=== PATIENT | female | born 2000 | race Caucasian/White ===

== ENCOUNTER 2019-12-16 14:53 | Outpatient (CLI) | payer OTHER ==
--- NOTE | 2019-12-16 15:10 | RAD ---
EXAM: 3 views of the right ankle HISTORY: Ankle pain after falling off a skateboard COMPARISON: None FINDINGS: 3 views of the right ankle shows an oblique fracture of the distal fibula. There is widenin g of the medial clear space of the ankle with a small avulsion fracture fragment adjacent to the medial malleolus. Moderate diffuse tissue swelling is seen. No degenerative changes are present. IMPRESSION: Distal fibular fracture with subluxation of the tibiotalar joint
== END 2019-12-16 14:54 | disposition home or self-care (01) ==
LOC: BICRAD 14:53
PROVIDERS: ATTEND Family Medicine
DX: S93.411A Sprain of calcaneofibular ligament of right ankle, initial encounter (principal); S82.831A Other fracture of upper and lower end of right fibula, initial encounter for closed fracture; S93.01XA Subluxation of right ankle joint, initial encounter

== ENCOUNTER 2019-12-16 16:03 | Inpatient (IN) | payer OTHER ==
[2019-12-16] MEDS ORDERED: Fentanyl 100 MCG/2 ML VIAL ONE (17:16)
[2019-12-16] MEDS ORDERED: Midazolam HCl 2 mg/2 ml Vial ONE (17:16)
[2019-12-16] MEDS ORDERED: Acetaminophen/Codeine 30-300mg Tablet PO PRN ×2 (17:27)
[2019-12-16] MEDS ORDERED: Ondansetron PF 4 MG/2 ML Vial IV PRN (17:27)
[2019-12-16] MEDS ORDERED: Morphine 2 MG/ML SYRINGE SLOW IVP PRN (17:27)
[2019-12-16] MEDS ORDERED: CEFAZOLIN 2 GM in Premix Bag 1 BAG IVPB SCH (17:30)
[2019-12-16] MEDS ORDERED: Communication Order-Pharmacy FS SCH (17:30)
--- NOTE | 2019-12-16 18:21 | RAD ---
RIGHT ANKLE TWO VIEWS: 12/16/19 INDICATION: History of post reduction films. COMPARISON: Prior exam dated 12/16/19 at 3:04 p.m. IMPRESSION: There has been interval reduction of the posterolateral subluxation of the talar dome in relationship to the tibial plafond. There is also slightly improved alignment involving the displaced lateral mal leolar fracture. The small avulsion fracture likely coming from the inner aspect of the medial malleo tato is partially visualized. Very small posterior malleolar fracture is also intervally reduced. IMPRESSION: Post reduction of the ankle fracture subluxation involving the right lower extremity. POS: BH
--- NOTE | 2019-12-16 18:40 | HP ---
DATE OF SURGERY: 12/15. PRINCIPAL DIAGNOSIS: Right lateral malleolus fracture with lateral shift of the talus. BRIEF HISTORY OF PRESENT ILLNESS: Silvana is a pleasant 19-year-old lady, who was accompanied by her mother to the emergency room at [facility]. Earlier this afternoon, I received a phone call from Dr. Jonathan Cooley, who had seen Silvana in his office. He x-rayed her ankle and found a fracture with subluxation of the talus and requested orthopedic consultation. Silvana reports this past Saturday she was skateboarding in [place], [place] when she fell, twisting her ankle. She initially thought that perhaps she had just sprained the ankle. However, it did continue to be painful and swollen. They did not seek definitive care in [place], but rather returned home to [place] by plane. Earlier today, she presented to Dr. Cooley's office and now being admitted for this fracture. There was no loss of consciousness at the time of injury. PAST MEDICAL HISTORY: Healthy. PAST SURGICAL HISTORY: Appendectomy without complication. MEDICATIONS: None. ALLERGIES: NONE KNOWN. FAMILY HISTORY: Noncontributory. SOCIAL HISTORY: She is a nondrinker. Does not smoke cigarettes. Denies drug use. REVIEW OF SYSTEMS: No recent fevers, chills, or sweats. Denies chest pain, cough, or shortness of breath. Denies numbness or tingling in this right lower extremity. PHYSICAL EXAMINATION: VITAL SIGNS: She is found to have a heart rate of 81, a respiratory rate of 16, a blood pressure of 129/82, and O2 saturations of 99% on room air. HEENT: Atraumatic and normocephalic. HEART: Shows a regular rate and rhythm without murmur. LUNGS: Clear to auscultation bilaterally with good breath sounds. Chest wall is nontender. ABDOMEN: Soft. PELVIS: Stable. EXTREMITIES: Remarkable for right lower extremity with an atraumatic knee. She is found to have ankle swelling and ecchymosis extending down to the lateral aspect of the right heel. The right foot also with some swelling. She has intact sensation over the dorsal and plantar surfaces of the foot. She has good capillary refill and 1+ dorsalis pedis pulse. She has pain to palpation at the lateral malleolus. SKIN: Intact without laceration, abrasion, or blister. X-RAY: X-ray performed earlier with Dr. Cooley's office remarkable for a lateral malleolar fracture with significant lateral shift of the talus and widening of the medial joint space. Repeat x-ray today following application of splint, closed reduction, the medial joint space was closed significantly, but still with displacement of the lateral malleolus. LABORATORY DATA: CBC pending. ASSESSMENT: A 19-year-old lady status post twist and fall while skateboarding sustaining a closed fracture with subluxation of the talus of her right ankle. At this time, the patient will be admitted to the hospital for pain management. She will be n.p.o. after midnight with plans to proceed to the operating room for open reduction and internal fixation of the lateral malleolus and possible repair of the deltoid ligament if the fracture does not reduce to an anatomic position closed. The patient appears comfortable with our discussion and plan. PROCEDURE: Today, under IV sedation with Dr. Pablito Guillory, a closed reduction of this fracture was performed. Following closed reduction, the leg was placed in a well-padded fiberglass splint. Job ID: [id number]
[2019-12-17 01:19] VITALS: BMI 23.3
[2019-12-17 06:07] LABS: #Eosinphils 0.2 thou/uL (0.0-0.7); #Lymphocytes 2.4 thou/uL (1.20-3.40); #Monocytes 0.5 thou/uL (0.11-0.59); #Neutrophils 3.1 thou/uL (1.40-6.50); %Basophils 0.7 % (0.0-1.0); %Eosinophils 3.6 % (0.0-10.0); %Monocytes 8.2 % (0.0-4.0); %Neutrophils 49.5 % (31.0-61.0); Hemoglobin 11.5 g/dL (12.0-16.0); Mean Corpuscular HGB CONC 31.4 g/dL (32.0-36.0); Mean Corpuscular Hemoglobin 29.1 pg (25.0-35.0); Mean Corpuscular Volume 92.7 fL (78.0-98.0); Mean Platelet Volume 8.1 fL (7.4-10.4); Platelet Count 226 thou/uL (130-400); RBC Distribution Width 12.3 % (11.5-14.5); Red Blood Cell (RBC) Count 3.95 mill/uL (4.00-5.20); White Blood Cell (WBC) Count 6.2 thou/uL (4.8-10.8)
[2019-12-17] MEDS ORDERED: Ketorolac Tromethamine 30 MG/ML VIAL IVP PRN ×2 (08:47→12:40)
[2019-12-17] MEDS ORDERED: Fentanyl 100 MCG/2 ML VIAL ONE ×3 (10:47→14:39)
[2019-12-17] MEDS ORDERED: Midazolam HCl 2 mg/2 ml Vial ONE (12:09)
[2019-12-17] MEDS ORDERED: Ropivacaine 0.2% 550 ML 550 ML NERVE BLCK SCH (12:40)
[2019-12-17] MEDS ORDERED: Zolpidem Tartrate 5 MG TAB PO PRN (12:40)
[2019-12-17] MEDS ORDERED: Promethazine HCl 25 MG/ML VIAL IM PRN (12:40)
[2019-12-17] MEDS ORDERED: traMADol HCl 50 MG TAB PO PRN ×2 (12:40)
[2019-12-17] MEDS ORDERED: Ondansetron PF 4 MG/2 ML Vial IVP PRN (12:40)
[2019-12-17] MEDS ORDERED: Fentanyl 100 MCG/2 ML VIAL SLOW IVP PRN (12:41)
[2019-12-17] MEDS ORDERED: HYDROcodone/Acetaminophen 7.5/325 mg Tablet PO PRN ×2 (12:41)
--- NOTE | 2019-12-17 14:27 | RAD ---
THREE VIEWS LEFT ANKLE: 12/17/19 PROVIDED CLINICAL HISTORY: ORIF. FINDINGS: COMPARISON: 12/16/19. Multiple spot fluoroscopic images are submitted. Lateral side plate and screw fixation with interfragmentary screw demonstrated involving the previous ly described distal fibular fracture with resultant improved alignment. IMPRESSION: As above. POS: LUCIANO
[2019-12-17] MEDS ORDERED: Lidocaine 1% PF 5 ML VIAL ONE (14:42)
[2019-12-17] MEDS ORDERED: Dexamethasone 20 MG/5 ML VIAL ONE (14:42)
[2019-12-17] MEDS ORDERED: PROPOFOL 200 MG/20 ML VIAL ONE (14:42)
[2019-12-17] MEDS ORDERED: Ondansetron PF 4 MG/2 ML Vial ONE (14:42)
[2019-12-17] MEDS ORDERED: Ropivacaine 0.5% HCl/PF (150 MG/30 ML VIAL) ONE (14:49)
[2019-12-17] MEDS ORDERED: Ropivacaine 0.2% HCl/PF (40 MG/20 ML VIAL) ONE (14:49)
[2019-12-17 18:20] VITALS: BP 119/79; TEMP 98.2
--- NOTE | 2019-12-18 09:01 | OP ---
DATE OF PROCEDURE: 12/17/2019 PREOPERATIVE DIAGNOSIS: Left lateral malleolus fracture. POSTOPERATIVE DIAGNOSIS: Left lateral malleolus fracture. PROCEDURE PERFORMED: Open reduction and internal fixation of left lateral malleolus. ANESTHESIA: General. BELLY ROLLER: Irvin Mera PA-C. IMPLANT: Synthes 6-hole 1/3 tubular locking plate with combination of cortical and cancellous screws. TOURNIQUET TIME: 42 minutes at 300 mmHg. COMPLICATIONS: None. DRAINS: None. SPECIMEN: None. OUTCOME: Near-anatomic alignment. INDICATIONS FOR PROCEDURE: The patient is a pleasant 19-year-old lady, who is status post skateboard injury sustaining a lateral malleolus fracture with displacement as well as displacement of the talus laterally within the mortise. After discussion with the patient including risks and benefits, we decided to proceed with open reduction and internal fixation. Informed consent has been obtained, and I believe all her questions answered. DESCRIPTION OF PROCEDURE: The patient was brought to the operating room and a time-out performed, followed by induction of general anesthesia. Next, the patient was positioned supine on the OR table and a sterile prep and drape was performed of the left lower extremity. Next, the limb was exsanguinated with Esmarch bandage, tourniquet inflated to 300 mmHg. A vertical incision was made over the lateral malleolus. After skin was sharply incised, dissection was carried down bluntly, and then, using minimal subperiosteal dissection, the fracture edges were identified and freed of soft tissue as well as hematoma. Once performed, the fracture was reduced and held in place with a bone tenaculum. Next, an anterior to posterior interfragmentary compression screw was applied in standard fashion, getting excellent compression across the fracture line. Next, a 6-hole 1/3 tubular neutralization plate was contoured to fit the lateral cortex of the distal fibula. This was held in place with 2 cancellous screws distally and 3 cortical screws proximally. At the completion of this, there was found to be a stable mortise. An AP, lateral, and mortise x-rays showed anatomic alignment of the fracture and ankle mortise. As such, the wound was then irrigated with bulb syringe and closed in layers with 0 Vicryl deep, followed by 2-0 Vicryl and then nylon for the skin. The Xeroform gauze, Webril, and fiberglass splint were applied to the ankle. Tourniquet was let down with a total time of 42 minutes, and the patient was transferred to recovery room in stable condition. There were no complications. She tolerated the procedure well. Job ID: [id number]
== END 2019-12-17 18:27 | disposition home or self-care (01) | DRG 494 ==
LOC: ERS 16:03 → SJJU 17:35
PROVIDERS: ADMIT Orthopaedic Surgery; ATTEND Orthopaedic Surgery
PROC: 0QSJ04Z Reposition Right Fibula with Internal Fixation Device, Open Approach (ICD-10-PCS; principal; 2019-12-17)
DX: S82.61XA Displaced fracture of lateral malleolus of right fibula, initial encounter for closed fracture (principal); V00.138A Other skateboard accident, initial encounter; Z90.49 Acquired absence of other specified parts of digestive tract
CPT/HCPCS: 27788; 36415; 76000; 85025; 96374; 96375; 99152; A4306; C1713; J0690; J1100; J1885; J2001; J2250; J2270; J2405; J2704; J2795; J3010